=== PATIENT | male | born 1965 | race Caucasian/White ===

== ENCOUNTER 2019-12-14 20:41 | Emergency (ER) | payer SELFPAY ==
[2019-12-14 20:41] VITALS: BP 133/90; PULSE 64; RESP 16; TEMP 35.9; O2SAT 100; BMI 35.5
--- NOTE | 2019-12-14 21:02 | ED.RN ---
PT FALLING ASLEEP DURING ASSESSMENT. WHEN AWOKEN FOR ASSESMENT QUESTIONS PT STATES HE DOES NOT WANT TO BE HERE. KNOWS HE IS AT [facility], BUT DOES NOT ANSWER ANY OTHER QUESTIONS ABOUT INJURY.
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
[2019-12-14 22:41] VITALS: BP 157/79; PULSE 64; RESP 16; O2SAT 97
[2019-12-14 22:49] LABS: Absolute Neutrophil Count 11.9 X10^3/uL (2.0-7.7); Basophil# 0.06 X10^3/uL; Basophil% 0.4 % (0-1); Eosinophil# 0.02 X10^3/uL; Eosinophils% 0.1 % (0-5); Hematocrit 50.4 % (40-54); Lymphocyte % 10.4 % (19-41); Mean Corp Hgb Conc 33.7 g/dL (32-36); Mean Corpuscular Hgb 32.8 pg (27.0-32.0); Mean Corpuscular Volume 97.3 fL (80-94); Mean Platelet Vol. 10.8 fl (6.2-12.0); Monocyte# 0.85 X10^3/uL; Monocyte% 5.9 % (0-10); NRBC Flagged by Analyzer 0 % (0-5); Neutrophil # 11.92 X10^3/uL (2.7-7.7); Neutrophil % 82.6 % (47-70); Platelet Count 142 K/mm3 (150-450); RBC Distribution Width SD 46.3 fl (35.1-43.9); Red Blood Count 5.18 M/mm3 (4.6-6.2); White Blood Count 14.4 K/mm3 (4.4-11.0)
[2019-12-14] MEDS: Diphth,Pertuss(Acell),Tet Vac 0.5 ML Vial IM (22:50)
[2019-12-14 23:05] LABS: Prothrombin Time (Protime)PT. 12.3 SECONDS (11.7-14.9)
[2019-12-14 23:06] LABS: Alcohol, Blood (Medical)-Serum < 3.0 mg/dL; Anion Gap 6 (5-15); BUN 12 mg/dL (7-18); BUN/Creat Ratio 9.2 RATIO (10-20); Calcium,Total 9.4 mg/dL (8.5-10.1); Chloride 110 mmol/L (98-107); EST Glomerular Filtration Rate 62 mL/min (>60); Est Glom Filt Rate - Afr Amer 74 mL/min (>60); Estimated Creatinine Clearance 68.63 ml/min; Glucose 101 mg/dL (74-106); Partial Thromboplast Time 24.5 Seconds (24.1-36.2); Potassium 4.5 mmol/L (3.5-5.1); Sodium Level 142 mmol/L (136-145)
--- NOTE | 2019-12-14 23:58 | ED.RN ---
report called to hannah at [facility].
== END 2019-12-14 23:32 | disposition short-term general hospital (02) ==
LOC: ED 21:45
PROVIDERS: Emergency Provider Emergency Medicine; PCP Family Medicine
DX: S06.6X0A Traumatic subarachnoid hemorrhage without loss of consciousness, initial encounter (principal); R40.2420 Glasgow coma scale score 9-12, unspecified time; W22.8XXA Striking against or struck by other objects, initial encounter; Y93.9 Activity, unspecified; Y92.9 Unspecified place or not applicable; F17.200 Nicotine dependence, unspecified, uncomplicated
CPT/HCPCS: 36415; 70450; 72125; 80048; 80320; 85025; 85610; 85730; 90715; 99285; J7030; A4216; G0480